=== PATIENT | female | born 1975 | race African-American/Black ===

== ENCOUNTER 2017-11-30 16:40 | Emergency (ER) | payer BC ==
[~2017-11-30] VITALS: Ht 162.6 cm; Wt 122.0 kg
[2017-11-30 16:52] VITALS: BP 153/89; PULSE 85; RESP 18; TEMP 97.1; O2SAT 99
[2017-11-30 17:02] VITALS: BP 147/89; PULSE 78; RESP 16; O2SAT 98
[2017-11-30] MEDS ORDERED: SODIUM CHLOR 0.9% 1000 ML INJ 1,000 ML IV ONE ×2 (17:15→18:30)
--- NOTE | 2017-11-30 17:16 | PD ---
HPI Chief Complaint: Diabetic Time Seen by Provider: 17:05 Travel History International Travel<30 days: No Contact w/Intl Traveler<30days: No Traveled to known affect area: No History of Present Illness HPI Patient comes emergency department for evaluation of uncontrolled diabetes. Patient states that they were running relatively normal for her until the past week when they have been going higher than normal. Patient reports she is visiting from [place] for work and when she checked her blood sugar earlier today was close to 600. Patient states she contacted her primary care doctor in [place] who recommend she increase her insulin. Patient reports she has not done this yet as she was just informed to do this. Patient reports polydipsia but denies polyuria. Patient reports that her urine has been bright yellow in color. Denies any chest pain, shortness of breath, abdominal pain, headache, numbness/tingling, fevers, dysuria, fatigue, or fevers. Patient reports she has been dealing with constipation over the past week for which she is taking fiber for it. Patient states that she has been losing approximately 10 pounds a month that she has been following a diet since August trying to lose weight. [facility] Past Medical History Diabetes: Yes Hypertension: Yes Thyroid Disease: Yes Social History Tobacco Use: No Substance Use: No Allergies-Medications (Allergen,Severity, Reaction): Coded Allergies: No Known Allergies (Unverified , 11/30/17) Reported Meds & Prescriptions Reported Meds & Active Scripts Active Reported Losartan-Hydrochlorothiazide 100-25 Mg Tab 1 Tab PO DAILY Humalog Kwikpen Pen Inj (Insulin Lispro (Human) Inj) 300 Unit/3 Ml Pen 28 Units SQ BIDAC Metformin (Metformin HCl) 1,000 Mg Tab 1,000 Mg PO BIDPC Review of Systems Except as stated in HPI: all other systems reviewed are Neg Physical Exam Narrative GENERAL: Well-developed, overly nourished, in no acute distress, and non-ill appearing. SKIN: Focused skin assessment warm and dry. HEAD: Atraumatic. Normocephalic. EYES: Pupils equal and round. EOMI. No scleral icterus. No injection or drainage. ENT: No nasal bleeding or discharge. Mucous membranes pink and moist. NECK: Trachea midline. Supple. No nuclear rigidity. CARDIOVASCULAR: Regular rate and rhythm. No murmur appreciated. RESPIRATORY: No accessory muscle use. No respiratory distress. Clear to auscultation. Breath sounds equal bilaterally. GASTROINTESTINAL: Abdomen soft, non-tender, nondistended, and no guarding. Hepatic and splenic margins not palpable. Normal bowel sounds x4. No pulsatile mass. MUSCULOSKELETAL: No obvious deformities. No clubbing. No cyanosis. No edema. Full range of motion. NEUROLOGICAL: Awake and alert. No obvious cranial nerve deficits. Motor grossly within normal limits. Normal speech. PSYCHIATRIC: Appropriate mood and affect; insight and judgment normal. Data Data Last Documented VS Vital Signs Date Time Temp Pulse Resp B/P (MAP) Pulse Ox O2 Delivery O2 Flow Rate FiO2 11/30/17 20:07 61 20 158/82 (107) 99 11/30/17 17:02 Room Air 11/30/17 16:52 97.1 Orders Orders Beta Hydroxybutyrate (Acetone) (11/30/17 17:06) Complete Blood Count With Diff (11/30/17 17:06) Comprehensive Metabolic Panel (11/30/17 17:06) Lipase (11/30/17 17:06) Urinalysis - C+S If Indicated (11/30/17 17:06) Iv Access Insert/Monitor (11/30/17 17:06) Ecg Monitoring (11/30/17 17:06) Oximetry (11/30/17 17:06) Magnesium (Mg) (11/30/17 17:06) Sodium Chlor 0.9% 1000 Ml Inj (Ns 1000 M (11/30/17 17:15) Insulin Human Regular Inj (Novolin R Inj (11/30/17 18:30) Sodium Chlor 0.9% 1000 Ml Inj (Ns 1000 M (11/30/17 18:30) Blood Glucose (11/30/17 18:23) Ed Discharge Order (11/30/17 20:00) Labs Laboratory Tests Test 11/30/17 17:20 11/30/17 17:24 White Blood Count 9.7 TH/MM3 Red Blood Count 4.67 MIL/MM3 Hemoglobin 11.6 GM/DL Hematocrit 36.0 % Mean Corpuscular Volume 77.1 FL Mean Corpuscular Hemoglobin 24.9 PG Mean Corpuscular Hemoglobin Concent 32.3 % Red Cell Distribution Width 15.3 % Platelet Count 339 TH/MM3 Mean Platelet Volume 11.1 FL Neutrophils (%) (Auto) 60.9 % Lymphocytes (%) (Auto) 27.1 % Monocytes (%) (Auto) 7.8 % Eosinophils (%) (Auto) 3.5 % Basophils (%) (Auto) 0.7 % Neutrophils # (Auto) 5.9 TH/MM3 Lymphocytes # (Auto) 2.6 TH/MM3 Monocytes # (Auto) 0.8 TH/MM3 Eosinophils # (Auto) 0.3 TH/MM3 Basophils # (Auto) 0.1 TH/MM3 CBC Comment DIFF FINAL Differential Comment Blood Urea Nitrogen 13 MG/DL Creatinine 1.17 MG/DL Random Glucose 341 MG/DL Total Protein 7.5 GM/DL Albumin 3.1 GM/DL Calcium Level 8.8 MG/DL Magnesium Level 1.7 MG/DL Alkaline Phosphatase 400 U/L Aspartate Amino Transf (AST/SGOT) 177 U/L Alanine Aminotransferase (ALT/SGPT) 310 U/L Total Bilirubin 4.6 MG/DL Sodium Level 136 MEQ/L Potassium Level 3.6 MEQ/L Chloride Level 96 MEQ/L Carbon Dioxide Level 28.2 MEQ/L Anion Gap 12 MEQ/L Estimat Glomerular Filtration Rate 62 ML/MIN Lipase 339 U/L B-Hydroxybutyrate 0.15 MMOL/L Urine Color YELLOW Urine Turbidity CLEAR Urine pH 5.5 Urine Specific [place] 1.017 Urine Protein 30 mg/dL Urine Glucose (UA) 250 mg/dL Urine Ketones TRACE mg/dL Urine Occult Blood TRACE Urine Nitrite NEG Urine Bilirubin LARGE Urine Urobilinogen 2.0 MG/DL Urine Leukocyte Esterase NEG Urine WBC 1 /hpf Urine Squamous Epithelial Cells 3 /hpf Urine Hyaline Casts 3 /lpf Microscopic Urinalysis Comment CULT NOT INDICATED MDM Medical Decision Making Medical Screen Exam Complete: Yes Emergency Medical Condition: Yes Differential Diagnosis DKA, uncontrolled diabetes, UTI, dehydration Narrative Course The patient has not experience extreme fatigue and irritability. The patient denies any current infections and has no slow healing cuts or bruises. The patient has no clinical findings of concurrent infection or UTI as well. The patient looks great and does not appear ill or dehydrated and is tolerating fluids. There is no clinical evidence to support DKA. The patient was given volume and insulin. The patient responded well to this treatment. The hyperglycemia may be due to noncompliance with ADA diet alone but may also be due to poorly controlled diabetes. Regardless the patient is stable, tolerating fluids, hydrated and non ill appearing and may be discharged home with acute follow up with Primary Care physician and undergo outpatient evaluation for possible adjustment of diabetic medication. The patient agreed with plan. Patient in no obvious distress upon re-evaluation. All pertinent laboratory result(s) discussed with patient. Discussed patient with Dr. Salazar prior discharge, who is in agreement with plan of care and disposition. Any questions /concerns in reference to patient diagnosis/condition discussed and clarified prior to patient's discharge. Reinforced sheer importance of close follow up with patient's primary physician or primary care clinic. Instructed patient to return to ED immediately, if symptoms return/worsen. Patient showed understanding of above instructions. Further instructions and recommendations were detailed in discharge paperwork. Patient ambulated without difficulty out of ED at discharge. Diagnosis Primary Impression: Hyperglycemia without ketosis Patient Instructions: Diabetic Hyperglycemia (GEN), General Instructions Additional Instructions: Follow-up with your primary care physician next week for reevaluation. Increase your insulin as instructed by her primary care doctor. Return to the emergency department if symptoms get worse. Disposition: 01 DISCHARGE HOME Condition: Stable Freddy Morillo November 30, 2017 17:16
[2017-11-30 17:46] LABS: AUTOMATED NEUTROPHIL # 5.9 TH/MM3 (1.8-7.7); BASOPHIL # 0.1 TH/MM3 (0-0.2); BASOPHIL % 0.7 % (0.0-2.0); EOSINOPHIL # 0.3 TH/MM3 (0-0.4); EOSINOPHIL % 3.5 % (0.0-4.0); HEMOGLOBIN 11.6 GM/DL (11.6-15.3); LYMPH % 27.1 % (9.0-44.0); LYMPHOCYTE # 2.6 TH/MM3 (1.0-4.8); MEAN CELL VOLUME 77.1 FL (80.0-100.0); MEAN CORPUSCULAR HEMOGLOBIN 24.9 PG (27.0-34.0); MEAN CORPUSCULAR HGB CONC 32.3 % (32.0-36.0); MEAN PLATELET VOLUME 11.1 FL (7.0-11.0); MONO % 7.8 % (0.0-8.0); MONOCYTE # 0.8 TH/MM3 (0-0.9); NEUT % 60.9 % (16.0-70.0); PLATELET COUNT 339 TH/MM3 (150-450); RED BLOOD COUNT 4.67 MIL/MM3 (4.00-5.30); RED CELL DISTRIBUTION WIDTH 15.3 % (11.6-17.2); WHITE BLOOD COUNT 9.7 TH/MM3 (4.0-11.0)
[2017-11-30 18:03] LABS: BILIRUBIN, URINE LARGE (NEG); GLUCOSE,URINE 250 mg/dL (NEG); KETONE, URINE TRACE mg/dL (NEG); NITRITE,URINE NEG (NEG); PH, URINE 5.5 (5.0-8.5); URINE COLOR YELLOW (YELLW/STRAW); URINE LEUKOCYTE ESTERASE NEG (NEG)
[2017-11-30 18:05] LABS: ALBUMIN 3.1 GM/DL (3.4-5.0); AST (GOT) 177 U/L (15-37); BICARBONATE 28.2 MEQ/L (21.0-32.0); BLOOD UREA NITROGEN 13 MG/DL (7-18); CALCIUM 8.8 MG/DL (8.5-10.1); CHLORIDE 96 MEQ/L (98-107); CREATININE 1.17 MG/DL (0.50-1.00); GLOMERULAR FILTRATION RATE 62 ML/MIN (>89); GLUCOSE,RANDOM 341 MG/DL (74-106); MAGNESIUM 1.7 MG/DL (1.5-2.5); SODIUM (NA) 136 MEQ/L (136-145)
[2017-11-30 18:06] LABS: ALKALINE PHOSPHATASE 400 U/L (45-117); ALT (GPT) 310 U/L (10-53); TOTAL BILIRUBIN ADULT 4.6 MG/DL (0.2-1.0); TOTAL PROTEIN 7.5 GM/DL (6.4-8.2)
[2017-11-30 18:07] LABS: BLOOD, URINE TRACE (NEG)
[2017-11-30 18:12] LABS: HYALINE CAST, URINE 3 /lpf (RARE); SQUAMOUS EPITHELIAL CELL URINE 3 /hpf (0-5)
[2017-11-30] MEDS ORDERED: LOSA100T2 PO (18:17)
[2017-11-30] MEDS ORDERED: HUMA100I3 SQ (18:17)
[2017-11-30] MEDS ORDERED: METF1000 PO (18:17)
--- NOTE | 2017-11-30 18:21 | PD ---
Physical Exam Date Seen by Provider: November 30, 2017 Data Data Last Documented VS Vital Signs Date Time Temp Pulse Resp B/P (MAP) Pulse Ox O2 Delivery O2 Flow Rate FiO2 11/30/17 17:02 78 16 147/89 (108) 98 Room Air 11/30/17 16:52 97.1 Orders Orders Beta Hydroxybutyrate (Acetone) (11/30/17 17:06) Complete Blood Count With Diff (11/30/17 17:06) Comprehensive Metabolic Panel (11/30/17 17:06) Lipase (11/30/17 17:06) Urinalysis - C+S If Indicated (11/30/17 17:06) Iv Access Insert/Monitor (11/30/17 17:06) Ecg Monitoring (11/30/17 17:06) Oximetry (11/30/17 17:06) Magnesium (Mg) (11/30/17 17:06) Sodium Chlor 0.9% 1000 Ml Inj (Ns 1000 M (11/30/17 17:15) Insulin Human Regular Inj (Novolin R Inj (11/30/17 18:30) Ns (Bolus) Inj (11/30/17 18:30) Labs Laboratory Tests Test 11/30/17 17:20 11/30/17 17:24 White Blood Count 9.7 TH/MM3 Red Blood Count 4.67 MIL/MM3 Hemoglobin 11.6 GM/DL Hematocrit 36.0 % Mean Corpuscular Volume 77.1 FL Mean Corpuscular Hemoglobin 24.9 PG Mean Corpuscular Hemoglobin Concent 32.3 % Red Cell Distribution Width 15.3 % Platelet Count 339 TH/MM3 Mean Platelet Volume 11.1 FL Neutrophils (%) (Auto) 60.9 % Lymphocytes (%) (Auto) 27.1 % Monocytes (%) (Auto) 7.8 % Eosinophils (%) (Auto) 3.5 % Basophils (%) (Auto) 0.7 % Neutrophils # (Auto) 5.9 TH/MM3 Lymphocytes # (Auto) 2.6 TH/MM3 Monocytes # (Auto) 0.8 TH/MM3 Eosinophils # (Auto) 0.3 TH/MM3 Basophils # (Auto) 0.1 TH/MM3 CBC Comment DIFF FINAL Differential Comment Blood Urea Nitrogen 13 MG/DL Creatinine 1.17 MG/DL Random Glucose 341 MG/DL Total Protein 7.5 GM/DL Albumin 3.1 GM/DL Calcium Level 8.8 MG/DL Magnesium Level 1.7 MG/DL Alkaline Phosphatase 400 U/L Aspartate Amino Transf (AST/SGOT) 177 U/L Alanine Aminotransferase (ALT/SGPT) 310 U/L Total Bilirubin 4.6 MG/DL Sodium Level 136 MEQ/L Potassium Level 3.6 MEQ/L Chloride Level 96 MEQ/L Carbon Dioxide Level 28.2 MEQ/L Anion Gap 12 MEQ/L Estimat Glomerular Filtration Rate 62 ML/MIN Lipase 339 U/L B-Hydroxybutyrate 0.15 MMOL/L Urine Color YELLOW Urine Turbidity CLEAR Urine pH 5.5 Urine Specific [place] 1.017 Urine Protein 30 mg/dL Urine Glucose (UA) 250 mg/dL Urine Ketones TRACE mg/dL Urine Occult Blood TRACE Urine Nitrite NEG Urine Bilirubin LARGE Urine Urobilinogen 2.0 MG/DL Urine Leukocyte Esterase NEG Urine WBC 1 /hpf Urine Squamous Epithelial Cells 3 /hpf Urine Hyaline Casts 3 /lpf Microscopic Urinalysis Comment CULT NOT INDICATED MDM Medical Record Reviewed: Yes Supervised Visit with YESSENIA: Yes Narrative Course I, Dr. Salazar, have reviewed the advance practice practitioner's documentation and am in agreement, met with the patient face to face, made the diagnosis, and the medical decision making was done by me. *My assessment and Findings: Patient is a 42-year-old female with uncontrolled type 2 diabetes, reports that she was taking metformin as well as glipizide, reports that her blood sugars were high, her primary care doctor took her off the glipizide and added trulicity, reports that since her blood sugar was uncontrolled, her primary care doctor added insulin. Patient reports that her blood sugars continue to be high, she did call her primary care doctor who told her to increase her dose of insulin. Reports that she has not increased her insulin yet but wanted to come to the ER to get "checked out." Patient does admit to having polydipsia, denies any polyuria. Overall, patient with no complaints. CBC & BMP Diagram 11/30/17 17:20 Total Protein 7.5, Albumin 3.1 L, Calcium Level 8.8, Magnesium Level 1.7, Alkaline Phosphatase 400 H, Aspartate Amino Transf (AST/SGOT) 177 H, Alanine Aminotransferase (ALT/SGPT) 310 H, Total Bilirubin 4.6 H Blood sugar was 341 in the emergency room, subcutaneous insulin as well as 2 L of IV fluid ordered. Will hydrate and recheck BS. Ultimately, patient was discharged home once blood sugars controlled. Rosalina Salazar DO November 30, 2017 18:21
[2017-11-30] MEDS ORDERED: INSULIN HUMAN REGULAR 1,000 UNITS/10 ML VIAL SQ ONE (18:30)
[2017-11-30 20:07] VITALS: BP 158/82
== END 2017-11-30 20:25 | disposition home or self-care (01) ==
LOC: NEPE 16:40
DX: E11.65 Type 2 diabetes mellitus with hyperglycemia (principal); I10 Essential (primary) hypertension; E07.9 Disorder of thyroid, unspecified; K59.00 Constipation, unspecified
CPT/HCPCS: 80053; 81001; 82010; 83690; 83735; 85025; 96360; 96372; 99284; J1815; J7030